=== PATIENT | male | born 1940 ===

== ENCOUNTER → 2017-09-02 | Outpatient (CLI) | payer OTHER ==
[2017-09-13 19:23] LABS: RED BLOOD COUNT 3.79 x10e6/uL (4.3-5.7)
[2017-09-13 19:24] LABS: EOSINOPHILS % 0.5 % (0.0-6.0); HEMATOCRIT 33.8 % (38.2-49.6); HEMOGLOBIN 10.7 g/dL (14.0-18.0); LYMPHOCYTES % 0.8 % (18.0-39.1); MEAN CORPUSCULAR HEMOGLOBIN 28.2 pg (28-32); MEAN CORPUSCULAR HGB CONC 31.7 g/dL (31-35); MEAN CORPUSCULAR VOLUME 89.2 fL (81-99); MONOCYTES % 0.7 % (4.4-11.3); NEUTROPHILS % 5.6 % (38.7-80.0); PLATELET COUNT 396 x10e3/uL (140-360)
[2017-09-13 19:25] LABS: ANION GAP 13.7 mmol/L (8-16); BLOOD UREA NITROGEN 17 mg/dL (7-26); BUN/CREATININE RATIO 17 (6-25); CALCIUM 9.5 mg/dL (8.4-10.2); CARBON DIOXIDE 26 mmol/L (22-29); CHLORIDE 103 mmol/L (98-107); CREATININE, SERUM 0.98 mg/dL (0.72-1.25); EST GLOMERULAR FILTRATION RATE > 60 ML/MIN (60-); GLUCOSE 70 mg/dL (74-118); POTASSIUM 3.7 mmol/L (3.5-5.1); SODIUM 139 mmol/L (136-145)
== END ==
LOC: NPA 13:00
PROVIDERS: ATTEND Internal Medicine Pulmonary Disease
DX: R69 Illness, unspecified (principal)
CPT/HCPCS: 36415; 80048; 80202; 85025

== ENCOUNTER → 2017-09-13 | Outpatient (CLI) | payer OTHER | LOC: NPA 17:00 | PROVIDERS: ATTEND Internal Medicine Pulmonary Disease | DX: Z02.89 Encounter for other administrative examinations (principal) ==